=== PATIENT | female | born 1965 | race Caucasian/White ===

== ENCOUNTER → 2017-10-11 | Outpatient (CLI) | payer MEDICAID ==
--- NOTE | 2017-10-11 09:27 | CPEKG ---
Heart Rate: 64 RR Interval: 938 P-R Interval: 128 QRSD Interval: 74 QT Interval: 404 QTC Interval: 417 P Ringling: 15 QRS Ringling: 49 T Wave Ringling: 41 EKG Severity - NORMAL ECG - EKG Impression: SINUS RHYTHM Electronically Signed By: Dionicio Hyman 11-Oct-2017 20:44:18
== END ==
LOC: FCP 09:15
PROVIDERS: ATTEND Psychiatry & Neurology Neurology
DX: G40.909 Epilepsy, unspecified, not intractable, without status epilepticus (principal)

== ENCOUNTER → 2017-10-13 | Outpatient (CLI) | payer MEDICAID | LOC: FIMAGING 15:03 | PROVIDERS: ATTEND Psychiatry & Neurology Neurology | DX: G40.909 Epilepsy, unspecified, not intractable, without status epilepticus (principal) ==

== ENCOUNTER 2017-10-15 15:32 | Emergency (ER) | payer MEDICAID ==
[2017-10-15 15:47] VITALS: RESP 16; TEMP 98.2
--- NOTE | 2017-10-15 16:30 | EDPHY ---
H & P Stated Complaint: fell 12/5 on r knee increased swelling Time Seen by Provider: 10/15/17 16:29 HPI/ROS: HPI: This is a 51-year-old female who presents with Chief Complaint: fell 12/5 on r knee increased swelling Location: Right knee Quality: Injury Duration: 1 week Signs and Symptoms: No bleeding, no radiation, no numbness, no weakness, no tingling, no incontinence, + decreased range of motion, + swelling, + pain Timing: Sudden, worsening Severity: Moderate to severe Context: Patient reports that she is homeless and lives in a retirement. She was walking across the street and accidentally tripped over her foot and fell directly on her right knee. She felt immediate pain, but was nonradiating in nature but constant and worsened with weight-bearing. She reports that the pain has gradually worsened. Nothing makes better. She reports that now she has some swelling and decreased range of motion. She saw her primary care provider in [place] approximately 1 month ago performed at steroid intra- articular right knee injection for her degenerative disease. She has tried no [id number] medications for her pain. Modifying Factors: None Comment: ROS: see HPI Constitutional: No fever, no chills, no weight loss Eyes: No blurred vision Respiratory: No shortness of breath, no cough Cardiovascular: No chest pain Gastrointestinal: No nausea, no vomiting no diarrhea Genitourinary: No dysuria Extremities: No myalgias Neurologic: No weakness, no numbness Skin: No rashes Hematologic: No bruising, no bleeding MEDICAL/SURGICAL/SOCIAL HISTORY: Medical history: Arthritis. Takes Depakote. Surgical history: Denies Social history: Homeless lives in a retirement CONSTITUTIONAL: awake and alert, no obvious distress HEENT: Atraumatic and normocephalic. NECK: supple, no midline tenderness, flexion 45 degrees, extension 45 degrees, right and left lateral flexion 45 degrees. No meningismus. Cardiovascular: Normal S1/S2, regular rate, regular rhythm, without murmur rub or gallop. PULMONARY/CHEST: Symmetrical and nontender. no crepitus. Clear to auscultation bilaterally. Good air movement. No accessory muscle usage. ABDOMEN: Soft, nondistended, nontender, no ecchymosis. PELVIC: no pain with rocking; bilateral hips flexion 125 degrees, extension 30 degrees, with no pain internal rotation and no pain external rotation. BACK: No midline tenderness, no paraspinous spasm, deep tendon reflexes 2/2, no pain with straight leg raise EXTREMITIES: 2/2 pulses, Right KNEE: Mild effusion, medial and lateral joint line tenderness, full extension to 180, flexion to 80, pain with varus and valgus exam. Pain with anterior drawer and posterior drawer test. Achilles intact. no deformities, no clubbing, no cyanosis or edema. NEUROLOGICAL: no focal neuro deficits. GCS 15. Light touch sensation intact. SKIN: Warm and dry, no erythema. no rash. Good capillary refill. Source: Patient Exam Limitations: No limitations - Personal History LMP (Females 10-55): Post Menopausal Current Tetanus/Diphtheria Vaccine: Yes - Medical/Surgical History Hx Asthma: No Hx Chronic Respiratory Disease: No Hx Diabetes: No Hx Cardiac Disease: No Hx Renal Disease: No Hx Cirrhosis: No Hx Alcoholism: No Hx HIV/AIDS: No Hx Splenectomy or Spleen Trauma: No Other PMH: arthritis - Social History Smoking Status: Former smoker Constitutional: Initial Vital Signs Temperature (C) 36.8 C 10/15/17 15:44 Heart Rate 95 10/15/17 15:44 Respiratory Rate 16 10/15/17 15:44 Blood Pressure 114/77 10/15/17 15:44 O2 Sat (%) 94 10/15/17 15:44 O2 Delivery Mode Room Air Allergies/Adverse Reactions: No Known Allergies Allergy (Unverified 10/15/17 15:44) Home Medications: Medication Instructions Recorded Depakote 10/15/17 traMADol [Ultram 50 mg (*)] 50 mg PO Q6 #10 tab 10/15/17 Medical Decision Making - Diagnostics Imaging Results: Imaging Impressions Knee X-Ray 10/15/17 15:48 Impression: There is no acute or subacute osseous abnormality. If there is further clinical concern regarding the patient's knee pain, consider MR imaging. Procedures: Procedure: Splint placement. A right knee immobilizer was applied by the Emergency Room hvac maintenance technician. After application of the splint I returned and re-examined the patient. The splint was adequately immobilizing the joint and distal to the splint the patient's circulation and sensation was intact. ED Course/Re-evaluation: X-rays, oral medication ordered Given p. o. Ultram 100 mg with adequate relief of pain Placed in knee immobilizer and given crutches. X-rays my read show degenerative changes; no fracture/dislocation. No signs of neurovascular compromise/tenting of skin/compartment syndrome/ extremities and joints examined above and below area of concern and are neurovascularly intact. This patient was seen under the supervision of my secondary supervising physician. I evaluated care for this patient independently. Patient's presentation, labs/imaging, treatment and plan of care were discussed with secondary supervising physician. Differential Diagnosis: Knee injury while [] including but not limited to fracture, ACL injury, contusion, muscular strain, and meniscus injury. - Data Points Medications Given: Discontinued Medications Tramadol HCl (Ultram) 100 mg PO EDNOW ONE Stop: 10/15/17 16:35 Last Admin: 10/15/17 16:39 Dose: 100 mg Departure - Departure Disposition: Home, Routine, Self-Care Clinical Impression: Effusion of right knee joint, Internal derangement of right knee Condition: Good Instructions: Knee Sprain (ED), Swollen Knee Joint (ED), RICE Therapy (ED), Knee Immobilizer (ED) Additional Instructions: Wear the knee brace while out of bed and use crutches to assist ambulation. While using crutches start with toe-touch on the right lower extremity and slowly advance as tolerated. Take Tylenol 650 mg every 4 hours and/or Ibuprofen 600 mg every 8 hours with food as needed for pain. Apply ice for 30 minutes at a time; 2-3 times per day for the next 1-2 days. Follow up with Orthopedics in 7-10 days at which time they will evaluate and recommend with you if conservative management versus further diagnostic imaging like MRI Knee is indicated. The x-rays obtained in the emergency department today demonstrate no evidence of an obvious fracture. Sometimes fractures are not obvious on the initial set of x-rays performed in the ED. For this reason, you should have repeat x-rays performed in 7-10 days if you are having any pain exclude the possibility of an occult fracture. Referrals: Marcel Chowdhury MD [Medical Doctor] - As per Instructions YAMILEX ROA [Other] - As per Instructions Prescriptions: traMADol [Ultram 50 mg (*)] 50 mg PO Q6 #10 tab
[2017-10-15] MEDS ORDERED: traMADol 50 MG TAB PO ONE (16:34)
[2017-10-15 18:01] VITALS: BP 114/72; PULSE 82; O2SAT 93
== END 2017-10-15 17:20 | disposition home or self-care (01) ==
DX: S80.01XA Contusion of right knee, initial encounter (principal); Z87.891 Personal history of nicotine dependence; W01.0XXA Fall on same level from slipping, tripping and stumbling without subsequent striking against object, initial encounter; Y92.410 Unspecified street and highway as the place of occurrence of the external cause; Y99.8 Other external cause status; Y93.01 Activity, walking, marching and hiking
CPT/HCPCS: L1830

== ENCOUNTER → 2017-11-05 | Outpatient (CLI) | payer MEDICAID ==
--- NOTE | 2017-11-08 15:28 | CPEEG ---
[f rep st] ELECTROENCEPHALOGRAM DATE OF STUDY: DATE OF INTERPRETATION: 11/08/2017 DATE OF STUDY: 11/05/2017. INTERPRETATION: This 4-hour video EEG recording is essentially normal. There were no definite poten tially epileptogenic abnormalities present in the awake or sleep recordings. During the video EEG mo nitoring session, the patient did not have any clinical events. REPORT: This 4-hour video EEG contains 11 Hz alpha activity to the posterior head regions. There wa s no abnormal activation at rest, during photic stimulation, or hyperventilation. The patient did boland ve a drowsy pattern composed of moderate amplitude rhythmic delta frequency activity, maximal over th e anterior head regions. This can be a normal drowsy pattern. The patient went on from drowsiness t o sustained sleep. There was no definite abnormal activation during drowsiness, sleep, or during gilbert es of arousal. The patient had a single sharply contoured waveform over the right frontal central he ad region during sleep of uncertain clinical significance on Epoch 413. The patient did not have any clinical events during the video EEG monitoring session. /[id number]/MODL
== END ==
LOC: FCPNEURO 08:03
PROVIDERS: ATTEND Psychiatry & Neurology Neurology
DX: G40.909 Epilepsy, unspecified, not intractable, without status epilepticus (principal)

== ENCOUNTER 2018-04-09 16:43 | Emergency (ER) | payer MEDICAID ==
--- NOTE | 2018-04-09 16:47 | EDPHY ---
HPI/HX/ROS/PE/MDM Narrative: CHIEF COMPLAINT: Lower abdominal pain HPI: The patient is a 52 y/o female complaining of worsening lower abdominal pain. She had her gallbladder removed and recently had a right rotator cuff repair. Over the past few weeks, she reports worsening lower abdominal pain. Three days ago, she developed diarrhea. She reports associated increased urinary frequency. She was seen at urgent care earlier today who referred her to the ED. She denies any other associated symptoms. REVIEW OF SYSTEMS: Aside from elements discussed in the HPI, a comprehensive 10-point review of systems was reviewed and is negative. PMH: Gallbladder removed, rotator cuff repair SOCIAL HISTORY: Lives in [place], unemployed, medicaid patient PHYSICAL EXAM: General:Patient is alert, in no acute distress. ENT:Eyes are normal to inspection. ENT inspection normal. Neck: Normal inspection. Full range of motion. Respiratory:No respiratory distress. Breath sounds normal bilaterally. Cardiovascular: Regular rate and rhythm. Strong peripheral pulses. Normal cap refill. Abdomen: Tenderness in the lower abdomen. There are no peritoneal signs. There are normal bowel sounds. Back: Normal to inspection. No tenderness to palpation. Skin: Normal color. No rash. Warm and dry. Extremities: Normal appearance. Full range of motion. Neuro: Oriented x3. Normal motor function. Normal sensory function. ED Course: The patient presents with increasing lower abdominal pain. She reports diarrhea and increased urinary frequency. Her exam indicates lower abdominal tenderness. A chorea search indicates she was seen a few days ago for shortness of breath at a different emergency department. Plan for pelvic ultrasound, urinalysis, beta HCG, CBC, and basic metabolic panel. 6:50 PM- The pelvic ultrasound is negative for acute findings. 7:05 PM- The patient is refusing CT and would like to go home. MDM: This patient presents with what sounds like fairly long-standing abdominal pain. Her exam is quite reassuring and labs and US are essentially normal. I offered her CTAP for further workup but she declines this and would like to go home. Review of [facility] indicates a history of frequent ED visits to numerous facilities for a variety of complaints, including one to [facility] only three days ago which patient did not mention to me. The etiology of her symptoms is unknown but limited by refusal of further imaging. - Data Points Imaging Results: Imaging Impressions Pelvic/Renal Ultrasound 06/06/18 17:28 Impression: Benign-appearing follicle cyst, right ovary. Lower uterine segment leiomyoma on the left. Results called to Dr. Mian Perez at 6:40 PM. Laboratory Results: Laboratory Results 04/09/18 16:48 04/09/18 16:48 04/09/1818 04/09/18 17:02 16:48 16:48 WBC RBC Hgb Hct MCV MCH MCHC RDW Plt Count MPV Neut % (Auto) Lymph % (Auto) Bradley % (Auto) Eos % (Auto) Baso % (Auto) Nucleat RBC Rel Count Absolute Neuts (auto) Absolute Lymphs (auto) Absolute Monos (auto) Absolute Eos (auto) Absolute Basos (auto) Absolute Nucleated RBC Immature Gran % Immature Gran # Sodium 140 mEq/L mEq/L (135-145) Potassium 4.3 mEq/L mEq/L (3.3-5.0) Chloride 101 mEq/L mEq/L (97-110) Carbon Dioxide 26 mEq/l mEq/l (22-31) Anion Gap 13 mEq/L mEq/L (8-16) BUN 10 mg/dL mg/dL (7-23) Creatinine 0.7 mg/dL mg/dL (0.6-1.0) Estimated GFR > 60 Glucose 83 mg/dL mg/dL (70-100) Calcium 9.1 mg/dL mg/dL (8.5-10.4) Beta HCG, Qual NEGATIVE Urine Color YELLOW Urine Appearance CLEAR Urine pH 6.0 (5.0-7.5) Ur Specific Blanchard 1.023 (1.002-1.030) Urine Protein NEGATIVE (NEGATIVE) Urine Ketones TRACE H (NEGATIVE) Urine Blood NEGATIVE (NEGATIVE) Urine Nitrate NEGATIVE (NEGATIVE) Urine Bilirubin NEGATIVE (NEGATIVE) Urine Urobilinogen 2.0 EU H EU (0.2-1.0) Ur Leukocyte Esterase NEGATIVE (NEGATIVE) Urine Glucose NEGATIVE (NEGATIVE) 04/09/18 16:48 WBC 10.60 10^3/uL H 10^3/uL (3.80-9.50) RBC 5.02 10^6/uL 10^6/uL (4.18-5.33) Hgb 14.8 g/dL g/dL (12.6-16.3) Hct 43.1 % % (38.0-47.0) MCV 85.9 fL fL (81.5-99.8) MCH 29.5 pg pg (27.9-34.1) MCHC 34.3 g/dL g/dL (32.4-36.7) RDW 13.4 % % (11.5-15.2) Plt Count 308 10^3/uL 10^3/uL (150-400) MPV 9.8 fL fL (8.7-11.7) Neut % (Auto) 67.3 % % (39.3-74.2) Lymph % (Auto) 27.0 % % (15.0-45.0) Bradley % (Auto) 4.0 % L % (4.5-13.0) Eos % (Auto) 1.1 % % (0.6-7.6) Baso % (Auto) 0.3 % % (0.3-1.7) Nucleat RBC Rel Count 0.0 % % (0.0-0.2) Absolute Neuts (auto) 7.14 10^3/uL H 10^3/uL (1.70-6.50) Absolute Lymphs (auto) 2.86 10^3/uL 10^3/uL (1.00-3.00) Absolute Monos (auto) 0.42 10^3/uL 10^3/uL (0.30-0.80) Absolute Eos (auto) 0.12 10^3/uL 10^3/uL (0.03-0.40) Absolute Basos (auto) 0.03 10^3/uL 10^3/uL (0.02-0.10) Absolute Nucleated RBC 0.00 10^3/uL 10^3/uL (0-0.01) Immature Gran % 0.3 % % (0.0-1.1) Immature Gran # 0.03 10^3/uL 10^3/uL (0.00-0.10) Sodium Potassium Chloride Carbon Dioxide Anion Gap BUN Creatinine Estimated GFR Glucose Calcium Beta HCG, Qual Urine Color Urine Appearance Urine pH Ur Specific Blanchard Urine Protein Urine Ketones Urine Blood Urine Nitrate Urine Bilirubin Urine Urobilinogen Ur Leukocyte Esterase Urine Glucose Medications Given: Discontinued Medications Sodium Chloride (Ns) 1,000 mls @ 0 mls/hr IV ONCE ONE PRN Reason: Wide Open Stop: 04/09/18 18:41 Last Admin: 04/09/18 18:42 Dose: 1,000 mls General Initial Vital Signs: Initial Vital Signs Temperature (C) 37 C 04/09/18 16:46 Heart Rate 66 04/09/18 16:46 Respiratory Rate 16 04/09/18 16:46 Blood Pressure 135/101 H 04/09/18 16:46 O2 Sat (%) 96 04/09/18 16:46 O2 Delivery Mode Room Air Allergies/Adverse Reactions: No Known Allergies Allergy (Unverified 10/15/17 15:44) Home Medications: Medication Instructions Recorded Depakote 10/15/17 traMADol [Ultram 50 mg (*)] 50 mg PO Q6 #10 tab 10/15/17 Departure - Departure Disposition: Home, Routine, Self-Care Clinical Impression: Abdominal pain, Diarrhea Condition: Good Instructions: Acute Diarrhea (ED), Abdominal Pain (ED) Additional Instructions: 1. Follow up with your primary care provider for continued symptoms in 3 to 5 days. 2. Return to the emergency department for any blood in your stool or other worsening of condition. Referrals: [facility],. [Clinic] - As per Instructions Report Scribed for: Mian Perez Report Scribed by: Ember Batista Date of Report: 04/09/18 Time of Report: 17:04 Physician Review and Approval Statement: Portions of this note were transcribed by an ED scribe. I personally performed the history, physical exam, and medical decision making; and confirm the accuracy of the information in the transcribed note.
[2018-04-09 17:06] LABS: PLATELET COUNT 308 10^3/uL (150-400)
[2018-04-09 18:27] VITALS: BP 134/80
[2018-04-09] MEDS ORDERED: NS 1,000 ML IV ONE (18:40)
== END 2018-04-09 19:23 | disposition home or self-care (01) ==
LOC: EDUNIT#
DX: R10.30 Lower abdominal pain, unspecified (principal); R19.7 Diarrhea, unspecified; E86.9 Volume depletion, unspecified